=== PATIENT | female | born 1960 | race Caucasian/White ===

== ENCOUNTER 2017-01-30 15:03 | Outpatient (CLI) | payer OTHER ==
[~2017-01-30 15:03] MED LIST: ALBUTEROL HFA60 DOSE IN; ASPIRIN ADULT L81 M1 PO; BUPROPION HCL300 MG PO; CITALOPRAM HYDR40 MG PO; HYDROCHLOROTHIA25 MG PO; LISINOPRIL10 MG PO; LOVASTATIN40 MG PO; METFORMIN HCL500 MG PO
--- NOTE | 2017-01-30 17:02 | DIAGNOSTIC IMAGING REPORT ---
PROCEDURE: MG BILATERAL SCREENING W/CAD INDICATION: SCREENING TECHNIQUE: Bilateral CC and MLO digital views. COMPARISON: Compared to 12/30/2015, 12/01/2014, and 10/29/2013. FINDINGS: Computer-aided detection applied. Mildly dense with a few dystrophic calcifications. No change. IMPRESSION: 1. Negative mammogram. RESULT CODE: 1- Negative. A. A negative report should not delay biopsy if a dominant or clinically suspicious mass is present. 10-15% of cancers are not identified by x-ray. B. A negative report may reinforce clinical impression. C. Adenosis and dense breasts may obscure an underlying neoplasm. D. False positive reports average 6-10%. E.. A yearly screening mammogram is recommended. A reminder letter will be scheduled.
== END 2017-01-30 23:00 ==
LOC: MAM SRH 15:03
DX: Z12.31 Encounter for screening mammogram for malignant neoplasm of breast (principal)